=== PATIENT | male | born 1995 | race Caucasian/White ===

== ENCOUNTER 2022-10-06 14:16 | Emergency (ER) | payer SELFPAY ==
[2022-10-06] MEDS ORDERED: LORazepam 2 MG/ML SDV IVPUSH ONE (15:14)
[2022-10-06] MEDS ORDERED: Sodium Chloride 0.9% 1,000 ML IV STA (15:14)
[2022-10-06] MEDS ORDERED: Sodium Chloride 0.9% 10 ML Syringe FLUSH PRN (15:15)
[2022-10-06 15:40] LABS: ESTIMATED GFR 104 mL/min (>60)
[2022-10-06] MEDS ORDERED: Ketorolac 15 MG/ML SDV IVPUSH ONE (16:58)
[2022-10-06 18:34] LABS: CORONAVIRUS COVID-19 NAA POSITIVE (NEGATIVE)
[2022-10-06] MEDS ORDERED: Acetaminophen 325 MG Tab PO ONE (18:40)
== END 2022-10-06 19:15 | disposition home or self-care (01) ==
LOC: JD.ED 14:16
DX: U07.1 COVID-19 (principal); Z79.899 Other long term (current) drug therapy
CPT/HCPCS: 0241U; 36415; 36600; 80053; 82375; 82803; 82947; 85025; 86140; 96361; 96374; 99284; A9270; J1885; J3490; J7030